=== PATIENT | male | born 1955 | race Caucasian/White ===

== ENCOUNTER 2023-12-26 05:45 | Inpatient (IN) ==
[2023-12-26] MEDS ORDERED: Tranexamic Acid 1 GM/100ML BAG 2,000 MG/200 ML BAG IV ONE (06:13)
[2023-12-26] MEDS ORDERED: ceFAZolin 2 GM PREMIX 2 GM/50 ML BAG ONE (06:13)
[2023-12-26] MEDS ORDERED: Ondansetron 4 mg VIAL 2 MG/ML 2 ml VIAL ONE (06:55)
[2023-12-26] MEDS ORDERED: Midazolam 2 mg/2 ml VIAL 1 mg/ml 2 ml VIAL (2 mg) ONE (06:55)
[2023-12-26] MEDS ORDERED: Dexamethasone IV 4 MG/ML VIAL 1 ml VIAL ONE (06:55)
[2023-12-26] MEDS ORDERED: Lidocaine 2% PF 5 ML VIAL ONE (06:55)
[2023-12-26] MEDS ORDERED: fentaNYL 100 mcg/2 ml 50 MCG/ML VIAL ONE ×2 (06:55→08:21)
[2023-12-26] MEDS ORDERED: Propofol 10 MG/ML 20 ML BTL ONE ×2 (06:55→10:41)
[2023-12-26] MEDS ORDERED: Phenylephrine IV 10 MG/ML 1 ml VIAL ONE (06:55)
[2023-12-26 07:11] LABS: Rapid COVID-19 Molecular Undetected (Undetected)
[2023-12-26 07:32] LABS: INR 1.03 (0.83-1.13)
[2023-12-26] MEDS ORDERED: ROPIVACAINE 5 MG/ML 30 ML BTL (0.5%) ONE ×2 (07:36→10:29)
[2023-12-26] MEDS ORDERED: Rocuronium 50 mg VIAL 10 mg/ml 5 ml VIAL (50 mg) ONE (07:38)
[2023-12-26] MEDS ORDERED: HYDROmorphone 0.5 MG/0.5 ML SYRINGE ONE (08:20)
[2023-12-26] MEDS ORDERED: Sterile Water for Inj 10 ML ONE (08:35)
[2023-12-26] MEDS ORDERED: HYDROmorphone 1 MG/1 ML SYRINGE IV PRN (08:41)
[2023-12-26] MEDS ORDERED: Naloxone 0.4 mg VIAL 0.4 mg/ml 1 ml VIAL IV PRN (08:41)
[2023-12-26] MEDS ORDERED: Ondansetron 4 mg VIAL 2 MG/ML 2 ml VIAL IV PRN (11:03)
[2023-12-26] MEDS ORDERED: Ondansetron ODT 4 mg TAB 4 MG TAB PO PRN (11:03)
[2023-12-26] MEDS ORDERED: Magnesium Hydroxide LIQ 30 ML UDC PO PRN (11:03)
[2023-12-26] MEDS ORDERED: Lactulose 30 ml UDC PO PRN (11:03)
[2023-12-26] MEDS ORDERED: Morphine 2 MG/ML SYRINGE IV PRN (11:03)
[2023-12-26] MEDS: Lactated Ringers 1000 ml BAG 1,000 ML IV SCH ×2 (13:36→13:37)
[2023-12-26] MEDS: Buffered Lidocaine 1% SYRIN 1 ml INTRADERM ONE (13:37)
[2023-12-26 15:11] VITALS: BP 137/81
[2023-12-26] MEDS: ceFAZolin 1 GM ADVAN 1 GM in NS 0.9% 50 ML 50 ML IVPB SCH (15:29)
[2023-12-26] MEDS ORDERED: Magnesium Hydroxide LIQ 30 ML UDC PO SCH (21:00)
[2023-12-27] MEDS ORDERED: Vitamin THERAPEUTIC TAB PO SCH (09:00)
== END 2023-12-26 16:25 | disposition home or self-care (01) | DRG 470 ==
LOC: AA 05:45 → SSU 11:03
PROVIDERS: ADMIT Orthopaedic Surgery Adult Reconstructive Orthopaedic Surgery; ATTEND Orthopaedic Surgery Adult Reconstructive Orthopaedic Surgery